=== PATIENT | female | born 1970 | race African-American/Black ===

== ENCOUNTER 2020-05-09 13:54 | Inpatient (IN) | payer OTHER ==
[2020-05-09 14:34] VITALS: BMI 36.4
--- NOTE | 2020-05-09 15:08 | P.HP ---
Certification for Inpatient Patient admitted to: Inpatient With expected LOS: >2 Midnights Practitioner: I am a practitioner with admitting privileges, knowledge of patient current condition, hospital course, and medical plan of care. Services: Services provided to patient in accordance with Admission requirements found in Title 42 Section 412.3 of the Code of Federal Regulations Patient History Date of Service: 05/09/20 Primary Care Provider: Flores Reason for admission: Unstable angina, htn urgency History of Present Illness: Patient came to the office to establish care. She was refereed to us by [facility] dentistry. The patient has a history of elevated blood pressure in the past. However she has never addressed it. She was 200/100's in the Dentists office. She called and made an appointment with me. However she was feeling dizzy during the day and was sent to the office by her work collegues. She was found to have a bp of again 200/100 in the office. This may be her baseline. However she complained of a band like epigastric pain radiating around to the back. She has been having this pain on and off since the past Friday. States it is a 4-10/10 in intensity. Thought she was not having this pain in the office or even now when she has been admitted. We decided to error on the side of caution and admit the patient. She states she takes NSAID's 1-2 times a week. This is usually for headaches. She has no family history of early onset heart disease Allergies No Known Allergies Allergy (Unverified 05/09/20 14:25) Home medications list reviewed: Yes Home Medications: Ibuprofen [Motrin*] 400 mg PO PRN PRN 05/09/20 Naproxen Sodium [Aleve] 220 mg PO PRN PRN 05/09/20 - Past Medical/Surgical History Has patient received pneumonia vaccine in the past: Yes Diabetic: No - Family History Father Notes: Mother -: Hypertension - Social History Smoking Status: Current some day smoker Alcohol use: Yes CD- Drugs: No Caffeine use: Yes Place of Residence: Home Review of Systems 10-point ROS is otherwise unremarkable Cardiovascular: Chest Pain Physical Examination - Vital Signs Blood Pressure: 180/110 - Physical Exam General: Alert, In no apparent distress HEENT: Atraumatic, PERRLA, Mucous membr. moist/pink, EOMI, Sclerae nonicteric Neck: Supple, 2+ carotid pulse no bruit, No LAD, Without JVD or thyroid abnormality Respiratory: Clear to auscultation bilaterally, Normal air movement Cardiovascular: Regular rate/rhythm, Normal S1 S2 Gastrointestinal: Normal bowel sounds, No tenderness Musculoskeletal: No tenderness Integumentary: No rashes Neurological: Normal gait, Normal speech, Normal strength at 5/5 x4 extr, Normal tone, Normal affect Lymphatics: No axilla or inguinal lymphadenopathy Assessment and Plan - Problems (Diagnosis) (1) Unstable angina Current Visit: Yes Status: Acute Plan: She has a normal EKG. Does not have any active pain. Will check serial troponins. Start her on aspirin. Would not do more than standard lovenox. We can try omeprazole to rule out gerd. Will also consult Dr. Nunez (2) HTN (hypertension) Current Visit: Yes Status: Acute Plan: Patient has not been on medications. She does not want to be on lisinopril or losartan. States her daughter was just treated for angiodema. Will start her on verapamil and adjust accordingly. Will give hydralazine for prn use. Avoid NSAIDs. Will give acetaminophen if she needs. May work up secondary htn as an outpatient. She has a neck circumference of 14.5 and a mallampatti score of 4. She may need an out patient sleep study. Qualifiers: Hypertension type: essential hypertension Qualified Code(s): I10 - Essential (primary) hypertension (3) Body mass index (bmi) 36.0-36.9, adult Current Visit: Yes Status: Acute Plan: will need to work her up as an out patient. She may have sleep apnea as aluded to above. Discharge Plan: Home Plan to discharge in: 48 Hours - Advance Directives Does patient have a Living Will: No Does patient have a Durable POA for Healthcare: No - Code Status/Comfort Care Code Status Assessed: No Code Status: Full Code Physician Review: Patient Assessed, Agree with Above Assessment and Plan Critical Care: No Time Spent Managing Pts Care (In Minutes): 75
[2020-05-09] MEDS ORDERED: ASPIRIN 81 MG CHEWABLE TABLET PO STA (15:11)
[2020-05-09] MEDS: HYDRALAZINE HCL 20 MG/ML VIAL IV PRN ×2 (15:22→21:30)
[2020-05-09] MEDS: ENOXAPARIN 40 MG/0.4 ML SQ SCH (15:30)
[2020-05-09 16:21] LABS: Albumin 4.1 g/dL (3.4-5.0); Bilirubin Total 0.3 mg/dL (0.2-1.0); Potassium 3.5 mmol/L (3.5-5.1)
[2020-05-10] MEDS: ACETAMINOPHEN 500 MG TAB PO PRN ×3 (00:04→08:06)
--- NOTE | 2020-05-10 05:21 | CON ---
Date of Consultation: 05/09/2020 Reason For Consultation: Chest pain and hypertensive crisis. History Of Present Illness: Ms. Amaral is a 49-year-old black woman without really any significant past medical history. She was at her dentist's office today and was noted to have severe hypertensio n with a systolic over 190 and was sent to Dr. Tanner for further evaluation and treatment. She was a lso complaining of some chest pressure that has been going on for about a week or 2, that is persiste nt, constant without any nausea, vomiting, and diaphoresis, did complain of some shortness of breath. She grades her chest pain at about 4/10. It was not exertional. Denied any PND, orthopnea, pedal edema, palpitations, or syncope. Denied any fever or chills. She was admitted for hypertensive sri is and chest pain workup. Past Medical History: Unremarkable. Family History: Positive for hypertension. Allergies: NONE. Review of Systems: Negative. Social History: Negative. Medications: At home were none. Physical Examination: General: When I saw her, her blood pressure was 150/100. She has received already IV hydralazine. Her pulse was 72 in sinus rhythm. She was afebrile. HEENT: Negative. Neck: Supple without any bruit, lymphadenopathy, JVD, or thyromegaly. Chest: Clear to auscultation and percussion. Cardiac: Revealed a regular rhythm and rate. No murmurs, gallops, or rubs. Abdomen: Benign. Extremities: Revealed no clubbing, cyanosis, or edema. Diagnostic Data: All within normal limit. Her EKG showed LVH. Impression And Plan: Hypertensive crisis. Patient is presently on aspirin, Lovenox, hydralazine, an d verapamil 180 mg daily. Her blood pressures seem to have improved. Her hydralazine is being used IV. I would definitely continue the verapamil. I would also suggest addition of maybe a Hyzaar 100/ 25 mg daily. I think the combination of Rapamune and Hyzaar will control her blood pressure. Her ch est pain is concerning, although it is probably secondary to hypertension. Echocardiogram and Lexisc an are pending for 05/10/2020. We will see what that shows before making final decisions. JULIETH/EDVIN Voice ID: [id number] Report ID: [id number]
[2020-05-10 06:05] LABS: Absolute Lymphocytes (CBC) 0.8 K/uL (0.7-4.9); Basophils % 0.5 % (0-1.3); Hematocrit 38.9 % (36.0-45.0); Lymphocytes % 9.7 % (15.3-44.8); MPV 8.2 fL (7.6-11.3); RBC Red Blood Cell Count 4.29 M/uL (3.86-4.86)
[2020-05-10 06:24] LABS: Bilirubin Total 0.5 mg/dL (0.2-1.0); Potassium 3.8 mmol/L (3.5-5.1); Thyroid Stimulating Hormone 1.55 uIU/mL (0.360-3.740)
[2020-05-10] MEDS ORDERED: REGADENOSON 0.4 MG/5 ML SYR IV ONE (08:05)
[2020-05-10] MEDS: VERAPAMIL SR 180 MG TAB PO SCH (08:06)
[2020-05-10] MEDS: ASPIRIN EC 81 MG TAB PO SCH (08:06)
[2020-05-10] MEDS: PANTOPRAZOLE 40MG TABLET PO SCH (08:06)
--- NOTE | 2020-05-10 08:27 | P.PN ---
Subjective Date of Service: 05/10/20 Primary Care Provider: Flores Chief Complaint: Unstable angina, htn urgency Subjective: New changes (complaints of headache. She did not sleep well last night) Review of Systems General: Other (headache) Physical Examination - Vital Signs Temperature: 99.0 F Blood Pressure: 164/93 Pulse: 96 Respirations: 16 Pulse Ox (%): 100 - Physical Exam General: Alert, In no apparent distress HEENT: Atraumatic, PERRLA, EOMI Neck: Supple, JVD not distended Respiratory: Clear to auscultation bilaterally, Normal air movement Cardiovascular: Regular rate/rhythm, Normal S1 S2 Gastrointestinal: Normal bowel sounds, No tenderness Musculoskeletal: No tenderness Integumentary: No rashes Neurological: Normal speech, Normal tone, Normal affect Lymphatics: No axilla or inguinal lymphadenopathy - Studies Laboratory Data (last 24 hrs) 05/10/20 06:15: WBC Cancelled, Hgb Cancelled, Hct Cancelled, Plt Count Cancelled 05/10/20 05:24: Sodium 139, Potassium 3.8, BUN 12, Creatinine 0.87, Glucose 105, Total Bilirubin 0.5, AST 20, ALT 24, Alkaline Phosphatase 73, Triglycerides 51, Cholesterol 170, HDL Cholesterol 71 H, Cholesterol/HDL Ratio 2.39 05/10/20 05:24: WBC 7.8, Hgb 12.4, Hct 38.9, Plt Count 202 05/10/20 05:00: Triglycerides Cancelled, Cholesterol Cancelled, HDL Cholesterol Cancelled, Cholesterol/HDL Ratio Cancelled 05/09/20 15:45: Sodium 141, Potassium 3.5, BUN 14, Creatinine 0.91, Glucose 91, Total Bilirubin 0.3, AST 19, ALT 25, Alkaline Phosphatase 74 05/09/20 15:45: Troponin I < 0.02 Assessment & Plan - Problems (Diagnosis) (1) Unstable angina Current Visit: Yes Status: Acute Plan: She has a normal EKG. Does not have any active pain. Will check serial troponi ns. Start her on aspirin. Would not do more than standard lovenox. We can try omeprazole to rule out gerd. Will also consult Dr. Nunez 05/10 Plans for an echo and stress test today. She had a negative troponin (2) HTN (hypertension) Current Visit: Yes Status: Acute Plan: Patient has not been on medications. She does not want to be on lisinopril or losartan. States her daughter was just treated for angiodema. Will start her on verapamil and adjust accordingly. Will give hydralazine for prn use. Avoid NSAIDs. Will give acetaminophen if she needs. May work up secondary htn as an outpatient. She has a neck circumference of 14.5 and a mallampatti score of 4. She may need an out patient sleep study. 05/10 Patient has better bp today. Not at goal. However she is having a bad headache. Will try treating her pain before increasing her bp. She is not likely to have a heart attack or a stroke at this blood pressure. Will give her tylenol now. We can see if some sumatriptan will help. However will give it after the stress test Qualifiers: Hypertension type: essential hypertension Qualified Code(s): I10 - Essential (primary) hypertension (3) Body mass index (bmi) 36.0-36.9, adult Current Visit: Yes Status: Acute Plan: will need to work her up as an out patient. She may have sleep apnea as aluded to above. Discharge Plan: Assisted - Code Status/Comfort Care Code Status Assessed: No Physician Review: Patient Assessed, Agree with Above Assessment and Plan Critical Care: No Time Spent Managing Pts Care (In Minutes): 20
[2020-05-10] MEDS ORDERED: SUMATRIPTAN SUCCI 50 MG TAB PO PRN (08:28)
--- NOTE | 2020-05-10 09:14 | RAD REPORT ---
EXAM DESCRIPTION: NM - Rest Stress Cardiac Imaging - 05/10/2020 9:07 am CLINICAL HISTORY: CP Chest pain. COMPARISON: No comparisons TECHNIQUE: The patient was administered approximately 10mCi of Tc 99m Sestamibi prior to resting SPE CT imaging of the heart. The patient was then administered approximately 30 mCi of Tc 99m Sestamibi f ollowing exercise or pharmacologic stress. Multiplanar SPECT images were reviewed. FINDINGS: No stress-induced ischemia defect is identified. No fixed defect is seen to suggest hibern ating myocardium or scarred myocardium. The end diastolic volume is 99 ml, the end systolic volume is 40 ml, and the ejection fraction is 59 %. IMPRESSION: No stress induced ischemia.
--- NOTE | 2020-05-10 12:24 | EKG ---
Test Date: 2020-05-09 Test Time: 15:04:39 Sonography Technologist: CONSTANCE MEASUREMENT RESULTS: Intervals: Rate: 58 NY: 156 QRSD: 94 QT: 430 QTc: 422 Willis: P: 32 NY: 156 QRS: 12 T: 11 INTERPRETIVE STATEMENTS: Sinus bradycardia Minimal voltage criteria for LVH, may be normal variant Cannot rule out Anterior infarct, age undetermined Abnormal ECG No previous ECG available for comparison Electronically Signed On 05-10-20 12:22:27 CDT by Garett Nunez
--- NOTE | 2020-05-10 12:55 | ECHO ---
HEIGHT: 5 ft 3 in WEIGHT: 205 lb 14.4 oz DATE OF STUDY: 05/10/[address]: Garett Nunez MD 2-DIMENSIONAL: YES M.MODE: YES DOPPLER: YES COLOR FLOW: YES TDS: NO PORTABLE: NO DEFINITY: NO BUBBLE STUDY: NO DIAGNOSIS: CHEST PAIN CARDIAC HISTORY: CATHERIZATION: NO SURGERY: NO PROSTHETIC VALVE: NO PACEMAKER: NO MEASUREMENTS (cm) DIASTOLIC (NORMALS) SYSTOLIC (NORMALS) IVSd 1.4 (0.6-1.2) LA Diam 3.5 (1.9-4.0) LVEF 56% LVIDd 3.7 (3.5-5.7) LVIDs 2.6 (2.0-3.5) %FS 29% LVPWd 1.2 (0.6-1.2) Ao Diam 2.9 (2.0-3.7) 2 DIMENSIONAL ASSESSMENT: RIGHT ATRIUM: NORMAL LEFT ATRIUM: NORMAL RIGHT VENTRICLE: NORMAL LEFT VENTRICLE: LEFT VENTRICULAR HYPERTROPHY TRICUSPID VALVE: NORMAL MITRAL VALVE: NORMAL PULMONIC VALVE: NORMAL AORTIC VALVE: NORMAL PERICARDIAL EFFUSION: NONE AORTIC ROOT: NORMAL LEFT VENTRICULAR WALL MOTION: NORMAL. DOPPLER/COLOR FLOW: NORMAL. COMMENTS: LEFT VENTRICULAR HYPERTROPHY. NORMAL EJECTION FRACTION WITH WALL MOTION. NO EFFUSION. TECHNOLOGIST: NOEMI SOL
--- NOTE | 2020-05-10 13:07 | TREADPHA ---
DX: CHEST PAIN Date of Study: 05/10/2020 Ht: 5' 3 " Wt: 205 lb 14.4 oz Consulting Physician: BREANNA MEDICATIONS: TYLENOL, ASPIRIN, LOVENOX, APRESOLINE, PROTONIX HISTORY: 49 YEAR OLD FEMALE WITH RECENT HISTORY OF HYPERTENSION ADMITTED FOR CHEST PAIN. DENIES PAIN AT TIME OF TESTING PHYSICIAL EXAMINATION: RESTING B.P.: 184/105 RESTING H.R.: 93 RESTING EKG: SINUS RHYTHM, LEFT VENTRICULAR HYPERTROPHY PROTOCOL: LEXISCAN EXERCISE TIME: 3:30 B.P. AT PEAK STRESS: 197/112 IMPRESSION: LEXISCAN STRESS TEST PERFORMED. CARDIOLITE INJECTED PER PROTOCOL. NO SUPRA VENTRICULAR TACHYCARDIA, NO VENTRICULAR TACHYCARDIA, PREMATURE VENTRICLAR COMPLEX NOTED. PATIENT DENIED CHEST PAIN. REPEAT BLOOD PRESSURE 169/99. RESPIRATIONS EVEN NON LABORED. SEE NUCLEAR MEDICINE REPORT.
[2020-05-10] MEDS: ENOXAPARIN 40 MG/0.4 ML SQ SCH (18:51)
[2020-05-10] MEDS ORDERED: ZOLPIDEM TARTRATE 10 MG TABLET PO ONE (20:46)
--- NOTE | 2020-05-10 21:27 | PN ---
Date of Progress Note: 05/10/2020 Ms. Amaral came in yesterday with hypertensive crisis and chest pain. Echocardiogram today showed l eft ventricular hypertrophy with normal ejection fraction. No wall motion abnormalities. Lexiscan w as done and was normal. No evidence of coronary artery disease. Blood pressure is better controlled . She is feeling better, asymptomatic. I would feel comfortable with her going home on verapamil an d maybe Hyzaar, possibly hydralazine 10 mg 3 times a day as well. We will see how she does with her blood pressure regimen and I would be happy to see her as an outpatient. JULIETH/EDVIN Voice ID: [id number] Report ID: [id number]
[2020-05-11 05:36] LABS: Absolute Lymphocytes (CBC) 1.6 K/uL (0.7-4.9); Basophils % 0.4 % (0-1.3); Hematocrit 39.5 % (36.0-45.0); Lymphocytes % 34.5 % (15.3-44.8); MPV 7.8 fL (7.6-11.3); RBC Red Blood Cell Count 4.35 M/uL (3.86-4.86)
[2020-05-11 05:52] LABS: Albumin 3.8 g/dL (3.4-5.0); Bilirubin Total 0.6 mg/dL (0.2-1.0); Potassium 3.6 mmol/L (3.5-5.1); Protein, Total 7.9 g/dL (6.4-8.2)
[2020-05-11 08:16] LABS: Blood Morphology Comment NOT SEEN (NOT SEEN); Platelet Estimate ADEQ
[2020-05-11] MEDS: VERAPAMIL SR 180 MG TAB PO SCH (08:34)
[2020-05-11] MEDS: ASPIRIN EC 81 MG TAB PO SCH (08:34)
[2020-05-11] MEDS: PANTOPRAZOLE 40MG TABLET PO SCH (08:34)
[2020-05-11 08:35] VITALS: BP 156/71
[2020-05-11 08:39] VITALS: O2SAT 100
[2020-05-11 09:13] VITALS: TEMP 98.7
--- NOTE | 2020-05-11 12:29 | P.DS ---
Admission Date: 05/09/20 Discharge Date: 05/11/20 Primary Care Provider: Flores Disposition: ROUTINE DISCHARGE Reason for Admission: Unstable angina, htn urgency Consultations: Enrique - Problems (1) Unstable angina Status: Acute (2) HTN (hypertension) Status: Acute Qualifiers: Hypertension type: essential hypertension Qualified Code(s): I10 - Essential (primary) hypertension (3) Body mass index (bmi) 36.0-36.9, adult Status: Acute Brief History of Present Illness: Patient came to the office to establish care. She was refereed to us by [facility] dentistry. The patient has a history of elevated blood pressure in the past. However she has never addressed it. She was 200/100's in the Dentists office. She called and made an appointment with me. However she was feeling dizzy during the day and was sent to the office by her work collegues. She was found to have a bp of again 200/100 in the office. This may be her baseline. However she complained of a band like epigastric pain radiating around to the back. She has been having this pain on and off since the past Friday. States it is a 4-10/10 in intensity. Thought she was not having this pain in the office or even now when she has been admitted. We decided to error on the side of caution and admit the patient. She states she takes NSAID's 1-2 times a week. This is usually for headaches. She has no family history of early onset heart disease Hospital Course: Patient was admitted from the office for htn urgency She was having an anginal equivalent on and off. She had a negative troponins and ekg. IN the hospital she was seen by Dr. Funes and had a negative echo and stress test She is better controlled on verapamil. Not quite controlled. The patient can follow up with me in a week and we can adjust her medications. Vital Signs/Physical Exam: Temp Pulse Resp BP Pulse Ox 98.7 F 80 16 156/71 H 100 05/11/20 08:00 05/11/20 08:34 05/11/20 08:00 05/11/20 08:34 05/11/20 08:00 General: Alert, In no apparent distress HEENT: Atraumatic, PERRLA, EOMI Neck: Supple, JVD not distended Respiratory: Clear to auscultation bilaterally, Normal air movement Cardiovascular: Regular rate/rhythm, Normal S1 S2 Gastrointestinal: Normal bowel sounds, No tenderness Musculoskeletal: No tenderness Integumentary: No rashes Neurological: Normal speech, Normal tone, Normal affect Lymphatics: No axilla or inguinal lymphadenopathy Laboratory Data at Discharge: WBC 4.7 K/uL (4.3-10.9) D 05/11/20 05:16 Hgb 12.6 g/dL (12.0-15.0) 05/11/20 05:16 Hct 39.5 % (36.0-45.0) 05/11/20 05:16 Plt Count 221 K/uL (152-406) 05/11/20 05:16 Sodium 140 mmol/L (136-145) 05/11/20 05:16 Potassium 3.6 mmol/L (3.5-5.1) 05/11/20 05:16 BUN 13 mg/dL (7-18) 05/11/20 05:16 Creatinine 0.91 mg/dL (0.55-1.3) 05/11/20 05:16 Glucose 99 mg/dL (74-106) 05/11/20 05:16 Total Bilirubin 0.6 mg/dL (0.2-1.0) 05/11/20 05:16 AST 19 U/L (15-37) 05/11/20 05:16 ALT 23 U/L (12-78) 05/11/20 05:16 Alkaline Phosphatase 70 U/L (45-117) 05/11/20 05:16 Troponin I < 0.02 ng/mL (0.0-0.045) 05/09/20 15:45 Triglycerides 51 mg/dL (<150) 05/10/20 05:24 Cholesterol 170 mg/dL (<200) 05/10/20 05:24 HDL Cholesterol 71 mg/dL (40-60) H 05/10/20 05:24 Cholesterol/HDL Ratio 2.39 05/10/20 05:24 Home Medications: Ibuprofen [Motrin*] 400 mg PO PRN PRN 05/09/20 Naproxen Sodium [Aleve] 220 mg PO PRN PRN 05/09/20 Aspirin [Aspirin EC 81 MG] 81 mg PO DAILY 90 Days #90 tablet.dr 05/11/20 Verapamil HCl [Verapamil ER] 180 mg PO DAILY 90 Days #90 tablet.er 05/11/20 Verapamil Sr [Calan Sr*] 180 mg PO DAILY #0 tab 05/11/20 New Medications: Aspirin [Aspirin EC 81 MG] 81 mg PO DAILY 90 Days #90 tablet. Verapamil Sr [Calan Sr*] 180 mg PO DAILY #0 tab Verapamil HCl [Verapamil ER] 180 mg PO DAILY 90 Days #90 tablet.er Diet: Regular Activity: Ad nicholas Followup: Juanjose Tanenr MD [ACTIVE - CAN ADMIT] - (Call to make an appointment. ) Time spent managing pt's care (in minutes): 30
== END 2020-05-11 10:30 | disposition home or self-care (01) | DRG 305 ==
LOC: LAB 13:54 → EDSTATUS 13:56 → 2ND 13:57
PROVIDERS: ADMIT Internal Medicine; ATTEND Internal Medicine
DX: I16.0 Hypertensive urgency (principal); I20.0 Unstable angina; F17.200 Nicotine dependence, unspecified, uncomplicated; Z79.899 Other long term (current) drug therapy; Z20.828 Contact with and (suspected) exposure to other viral communicable diseases
CPT/HCPCS: 36415; 78452; 80053; 80061; 84443; 84484; 85025; 93005; 93017; 93306; A9500; J0360; J1650; J2785; U0002

== ENCOUNTER 2023-02-07 10:32 | Emergency (ER) | payer SELFPAY ==
--- OUTSIDE RECORDS SUMMARY | 2023-02-07 10:34 | XMS REPORT | Continuity of Care Document ---
:1970 Author Organization [facility] t Address [address] [place] [address]. [address] [place] [address] Care Team Providers Name Role Phone Pcp, Patient Does Not Have A Primary Care Physician [phone] Maria Del Rosario Koenig Attending Clinician Unavailable LASHAE MULLEN Attending Clinician Unavailable Lashae Frias Attending Clinician Problems Condition Condition Condition Status Onset Resolution Last Treating Co mments Source Name Details Category Date Date Treatment Clinician Date No known No known Disease Unive rs active active ity of problems problems [facility] Allergies, Adverse Reactions, Alerts Allergy Allergy Status Severity Reaction(s) Onset Inactive Treating Comm ents Source Name Type Date Date Clinician NO KNOWN Drug Active Univers ALLERGIE Class ity of S [facility] Social History Social Habit Start Date Stop Date Quantity Comments Source Exposure to Not sure [facility] SARS-CoV-2 (event) Medica l Branch Sex Assigned At [birth year] [facility]00 [facility] Smoking Status Start Date Stop Date Source Unknown if ever smoked [facility] Medications Ordered Filled Start Stop Current Ordering Indication Dosage Frequency Signature Comments Components Source Medication Medication Date Date Medication? Clinician (SIG) Name Name ondansetron No 4mg 4 mg, Univ ers (ZOFRAN-ODT 01-30 Oral, ity of ) 17:30: 16:23 ONCE, 1 [place] disintegrat 00 :00 dose, On Medi gunjan ing tablet Wed Branch 4 mg 01/30/22 at 1230, Routine ibuprofen 2021- No 600mg 600 mg, Uni vers (IBU) 3-16 16 Oral, ity of tablet 600 17:30: 16:24 ONCE, 1 [place] as mg 00 :00 dose, On Medical Wed Branch 01/30/22 at 1230, ALY verapamiL Yes 240mg Take 240 Uni vers 240 mg ER 3-16 mg by ity of tablet 12:19: mouth [place] 54 daily. Medical Branch codeine-gua Yes 5mL Take 5 mL U nivers ifenesin 3-16 by mouth ity of 10-100 mg/5 00:00: every 6 [place]ienne as mL oral 00 (six) Medical solution hours as Branch needed for Cough. Indication s: influenza ondansetron Yes [id number] 4mg Take 1 Univers 4 mg 3-16 tablet by ity of disintegrat 00:00: mouth [place] ing tablet 00 every 8 Medica l (eight) Branch hours as needed for Nausea and Vomiting (N/V). Immunizations Ordered Immunization Filled Immunization Date Status Commen ts Source Name Name Pfizer COVID-19 Vaccine Pfizer COVID-19 2021-07-16 Completed Vaccine 00:00:00 Vital Signs Vital Name Observation Time Observation Value Comments Source Body temperature 2022-01-30 38.33 Jovana provider aware. [facility] of 17:39:10 patient states [facility] [place] will take [place] Tylenol at home. Systolic blood 2022-01-30 168 mm[Hg] [facility] pressure 16:03:00 [facility] Diastolic blood 2022-01-30 110 mm[Hg] [place] o f pressure 16:03:00 [facility] Heart rate 2022-01-30 88 /min [facility] 16:03:00 [facility] Respiratory rate 2022-01-30 18 /min [facility] 16:03:00 [facility] Body weight 2022-01-30 81.647 kg [facility] 16:03:00 [facility] Oxygen saturation 2022-01-30 99 /min [facility] in Arterial blood 16:03:00 [facility] by Pulse oximetry [place] Procedures Procedure Date / Time Performed Performing Clinician Sourc e RAPID INFLUENZA A/B 2022-01-30 16:21:00 Lashae Mullen [facility] COVID-19 (ID NOW 2022-01-30 16:21:00 Lashae Mullen [facility] RAPID TESTING) [facility] CONSENT/REFUSAL FOR 2022-01-30 15:58:57 Doctor Unassigned, No Un [facility] DIAGNOSIS AND Name Medical Branch TREATMENT Encounters Start End Encounter Admission Attending Care Care Encounter Source Date/Time Date/Time Type Type Clinicians Facility Department ID 2022-08-13 Outpatient RIVAS Koenig [facility] [id number] Common 09:55:01 Avnee [id number] [facility] 2022-08-[address] [facility] [id number] Common 08:57:04 Avnefadi [id number] [facility] 2022-01-30 2022-01-30 Emergency X AHMET MULLEN ERT [id number] Univers 11:05:00 12:40:00 LASHAE osorio [facility] 2022-01-30 2022-01-30 Emergency AHMET Mullen [id number] Univers 11:05:00 12:40:00 Lashae MURGUIA [id number] i [facility] [id number] [facility] [id number] [place] [id number] Branch 2021-07-16 2021-07-16 Outpatient [facility] [id number] [facility] 00:00:00 00:00:00 V Results This patient has no known results.
[2023-02-07] MEDS ORDERED: KETOROLAC 30 MG/ML INJ ONE (11:10)
[2023-02-07 11:27] LABS: Specific Gravity 1.024 (1.005-1.030); Urine Bacteria <20 /HPF (<20); Urine Bilirubin NEGATIVE (Negative); Urine Blood 1+ (Negative); Urine Clarity Clear (Clear); Urine Color Light-Yellow (Yellow); Urine Crystals Unidentified Few /HPF (None Seen); Urine Glucose NEGATIVE (Negative); Urine Mucus Slight /HPF (None Seen); Urine Protein NEGATIVE (Negative); Urine Urobilinogen Normal (Normal); Urine pH 5.5 (5.0-7.0)
--- NOTE | 2023-02-07 12:31 | RAD REPORT ---
EXAM DESCRIPTION: RAD - Lumbar Spine 3 Views - 02/07/2023 12:03 pm CLINICAL HISTORY: low back pain Radiculopathy COMPARISON: No comparisons FINDINGS: Vertebral body heights appear maintained. No compression fracture noted. Small endplate os teophytes with minimal anterolisthesis L4-5. Mild disc thinning with small endplate osteophytes L5-S1 . IMPRESSION: Mild lower lumbar spondylosis.
--- NOTE | 2023-02-07 12:33 | RAD REPORT ---
EXAM DESCRIPTION: RAD - Hip Left 2 View - 02/07/2023 12:07 pm CLINICAL HISTORY: left hip pain COMPARISON: No comparisons FINDINGS: No fracture, dislocation or AVN.
--- NOTE | 2023-02-07 13:20 | EDPHYS ---
Physician Documentation [facility] Name: Sabrina Amaral Age: 52 yrs Sex: Female : 1970 Arrival Date: 02/07/2023 Time: 10:34 Bed 14 Private MD: ED Physician Kaiser Prater HPI: 02/07 10:52 This 52 yrs old Black Female presents to ER via Ambulatory with complaints of Back jmm Pain, Leg Pain. 10:52 The patient presents with pain that is acute. Onset: The symptoms/episode jmm began/occurred gradually, 3 day(s) ago. The pain radiates to the left leg. Associated signs and symptoms: Pertinent negatives: abdominal pain, vomiting. Modifying factors: The patient symptoms are alleviated by nothing, the patient symptoms are aggravated by nothing. Is a 52-year-old female with history of hypertension the presents emerged department with complaints of left-sided hip pain which radiates down the leg. Patient also had some concerns that she may have a UTI due to pain radiating into the groin. Denies any dysuria. Denies fever, vomiting, numbness.. Historical: - Allergies: 10:51 No Known Allergies; ll1 - PMHx: 10:51 Hypertensive disorder; ll1 - PSHx: 10:51 section; ll1 - Immunization history:: Client reports receiving the 2nd dose of the Covid vaccine. - Social history:: Smoking status: Patient reports the use of cigarette tobacco products, denies chronic smoking, but will smoke occasionally. ROS: 10:52 Constitutional: Negative for fever, chills, and weight loss, Cardiovascular: Negative jmm for chest pain, palpitations, and edema, Respiratory: Negative for shortness of breath, cough, wheezing, and pleuritic chest pain. 10:52 MS/extremity: Positive for pain. 10:52 All other systems are negative. Exam: 10:52 Constitutional: This is a well developed, well nourished patient who is awake, alert, jmm and in no acute distress. Head/Face: atraumatic. Eyes: EOMI, no conjunctival erythema appreciated ENT: Moist Mucus Membranes Neck: Trachea midline, Supple Chest/axilla: Normal chest wall appearance and motion. Cardiovascular: Regular rate and rhythm. No edema appreciated Respiratory: Normal respirations, no respiratory distress appreciated Abdomen/GI: Non distended Back: Normal ROM Skin: General appearance color normal 10:52 Musculoskeletal/extremity: Pain on palpation of the left proximal femur, compartments are soft, full range of motion appreciated, full dorsalis pedis pulse, neurovascular. 10:52 Neuro: Orientation: is normal, Mentation: is normal, Memory: is normal. 10:52 Psych: Behavior/mood is pleasant, cooperative. Vital Signs: 10:52 BP 178 / 99; Pulse 51; Resp 17; Temp 99.2; Pulse Ox 96% on R/A; Weight 79.83 kg; Height ll1 5 ft. 3 in. ; Pain 8/10; 12:55 BP 163 / 97; Pulse 55; Resp 17; ll1 13:20 Pain 6/10; jl7 13:20 BP 173 / 95; Pulse 56; Resp 15; Pulse Ox 97% ; Pain 6/10; jl7 10:52 Body Mass Index 31.18 (79.83 kg, 160.02 cm) ll1 10:52 Pain Scale: Adult ll1 13:20 Pain Scale: Adult jl7 13:20 Pain Scale: Adult jl7 MDM: 10:52 Patient medically screened. [facility] 14:28 Differential diagnosis: Sciatica, hip strain, fracture. Data reviewed: vital signs, [facility] nurses notes, lab test result(s), radiologic studies, plain films. I considered the following discharge prescriptions or medication management in the emergency department Medications were administered in the Emergency Department. See MAR. Independent interpretation of the following test(s) in the Emergency Department X-Ray: My interpretation is No fracture appreciated. Counseling: I had a detailed discussion with the patient and/or guardian regarding: the historical points, exam findings, and any diagnostic results supporting the discharge/admit diagnosis, lab results, radiology results, the need for outpatient follow up, to return to the emergency department if symptoms worsen or persist or if there are any questions or concerns that arise at home. 02/07 10:57 Order name: Urinalysis w/ reflexes; Complete Time: 11:30 [facility] 02/07 10:57 Order name: Lumbar Spine (3 Views) XRAY; Complete Time: 12:34 [facility] 02/07 10:57 Order name: Hip Left 2 View XRAY; Complete Time: 12:34 [facility] Administered Medications: 11:09 Drug: Ketorolac IM 30 mg Route: IM; Site: left gluteus; ll1 12:57 Follow up: Response: No adverse reaction; Pain is decreased; RASS: Alert and Calm (0) ll1 13:20 Follow up: Pain 6/10 Adult jl7 Disposition: 14:47 Co-signature as Attending Physician, Kaiser Prater MD I reviewed the patient's care rt provided by the Advanced Practice Provider and agree with the diagnosis and treatment plan. Disposition Summary: 02/07/23 13:20 Discharge Ordered Location: Home [facility] Condition: Stable [facility] Diagnosis - Sciatica [facility] - UTI/ Urinary tract infection, site not specified [facility] Followup: [facility] - With: Private Physician - When: 2 - 3 days - Reason: Recheck today's complaints, Continuance of care, Re-evaluation by your physician Followup: [facility] - With: Jaime Lee MD - When: 2 - 3 days - Reason: Recheck today's complaints, Continuance of care, Re-evaluation by your physician Discharge Instructions: - Discharge Summary Sheet [facility] - Sciatica [facility] - Urinary Tract Infection, Adult [facility] Forms: - Medication Reconciliation Form [facility] - Thank You Letter [facility] - Antibiotic Education [facility] - Prescription Opioid Use [facility] Prescriptions: - Cephalexin 500 mg Oral Capsule - take 1 capsule by ORAL route every 8 hours for 10 days; 30 capsule; Refills: 0, [facility] Product Selection Permitted - Medrol (Sebastian) 4 mg Oral Tablets, Dose Pack - take 1 tablet by ORAL route as directed - follow package instructions; 1 [facility] packet; Refills: 0, Product Selection Permitted - orphenadrine citrate 100 mg Oral Tablet Sustained Release - take 1 tablet by ORAL route 2 times per day As needed; 20 tablet; Refills: 0, [facility] Product Selection Permitted Signatures: Dispatcher [employer] Theodore Kramer PA PA jmm Lewis, Lynsay, RN RN ll1 Kaiser Prater MD MD rt Bernardino Diaz RN jl7
--- NOTE | 2023-02-07 13:20 | ER ---
Nurse's Notes [facility] Name: Sabrina Amaral Age: 52 yrs Sex: Female : 1970 Arrival Date: 02/07/2023 Time: 10:34 Bed 14 Private MD: Diagnosis: Sciatica;UTI/ Urinary tract infection, site not specified Presentation: 02/07 10:52 Chief complaint: Patient states: Lower back pain started 1 week ago. Pain radiates into ll1 L upper leg now. Pain is worse at night. Coronavirus screen: Vaccine status: Patient reports receiving the 2nd dose of the covid vaccine. Client denies travel out of the [place] in the last 14 days. At this time, the client does not indicate any symptoms associated with coronavirus-19. Ebola Screen: Patient denies travel to an Ebola-affected area in the 21 days before illness onset. Initial Sepsis Screen: Does the patient meet any 2 criteria? No. Patient's initial sepsis screen is negative. Does the patient have a suspected source of infection? No. Patient's initial sepsis screen is negative. Risk Assessment: Do you want to hurt yourself or someone else? Patient reports no desire to harm self or others. Onset of symptoms was January 31, 2023. 10:52 Method Of Arrival: Ambulatory ll1 10:52 Acuity: NYLA 3 ll1 Triage Assessment: 10:55 General: Appears uncomfortable, Behavior is calm, cooperative, appropriate for age. ll1 Pain: Complains of pain in L lower back Quality of pain is described as aching. Musculoskeletal: Circulation, motion, and sensation intact. Capillary refill < 3 seconds, Reports pain in L lower back/left leg. Historical: - Allergies: 10:51 No Known Allergies; ll1 - PMHx: 10:51 Hypertensive disorder; ll1 - PSHx: 10:51 section; ll1 - Immunization history:: Client reports receiving the 2nd dose of the Covid vaccine. - Social history:: Smoking status: Patient reports the use of cigarette tobacco products, denies chronic smoking, but will smoke occasionally. Screenin:57 [facility] ED Fall Risk Assessment (Adult) Score/Fall Risk Level 0 - 2 = Low Risk ll1 Oriented to surroundings, Maintained a safe environment, Educated pt \T\ family on fall prevention, incl call for assistance when getting out of bed, Hourly rounding (assess needs \T\ fall precautionary measures) done. Abuse screen: Denies threats or abuse. Nutritional screening: No deficits noted. Tuberculosis screening: No symptoms or risk factors identified. Assessment: 11:10 Reassessment: No changes from previously documented assessment. Patient and/or family ll1 updated on plan of care and expected duration. Pain level reassessed. Patient is alert, oriented x 3, equal unlabored respirations, skin warm/dry/pink. 11:49 Reassessment: No changes from previously documented assessment. To Xray via stretcher. ll1 12:55 Reassessment: No changes from previously documented assessment. Patient and/or family ll1 updated on plan of care and expected duration. Pain level reassessed. Patient is alert, oriented x 3, equal unlabored respirations, skin warm/dry/pink. 13:11 Reassessment: No changes from previously documented assessment. JAYDEN Devlin at . ll1 13:20 Reassessment: Patient appears in no apparent distress at this time. Pain rated 6/10 on jl7 discharge. Pt reports non-compliance with HTN medication and is aware of risk Patient states feeling better. Patient states symptoms have improved. Vital Signs: 10:52 BP 178 / 99; Pulse 51; Resp 17; Temp 99.2; Pulse Ox 96% on R/A; Weight 79.83 kg; Height ll1 5 ft. 3 in. ; Pain 8/10; 12:55 BP 163 / 97; Pulse 55; Resp 17; ll1 13:20 Pain 6/10; jl7 13:20 BP 173 / 95; Pulse 56; Resp 15; Pulse Ox 97% ; Pain 6/10; jl7 10:52 Body Mass Index 31.18 (79.83 kg, 160.02 cm) ll1 10:52 Pain Scale: Adult ll1 13:20 Pain Scale: Adult jl7 13:20 Pain Scale: Adult jl7 ED Course: 10:34 Patient arrived in ED. mr 10:47 Theodore Azul PA is PHCP. [facility] 10:47 Kaiser Prater MD is Attending Physician. [facility] 10:51 Ghazala Seay, JAKE is Primary Nurse. ll1 10:51 Arm band placed on Patient placed in an exam room, on a stretcher. ll1 10:55 Triage completed. ll1 12:02 Lumbar Spine (3 Views) XRAY In Process Unspecified. EDMS 12:02 Hip Left 2 View XRAY In Process Unspecified. EDMS 12:57 Patient has correct armband on for positive identification. Bed in low position. Call ll1 light in reach. Cardiac monitoring not applicable on this patient. 12:57 No provider procedures requiring assistance completed. Patient did not have IV access ll1 during this emergency room visit. 13:21 Jaime Lee MD is Referral Physician. dolly 13:22 Referral Physician role handed off by Jaime Lee MD jmm Administered Medications: 11:09 Drug: Ketorolac IM 30 mg Route: IM; Site: left gluteus; ll1 12:57 Follow up: Response: No adverse reaction; Pain is decreased; RASS: Alert and Calm (0) ll1 13:20 Follow up: Pain 6/10 Adult jl7 Medication: 12:57 VIS not applicable for this client. ll1 Outcome: 13:20 Discharge ordered by . annamarie 13:20 Discharged to home ambulatory. jl7 13:20 Condition: stable 13:20 Discharge instructions given to patient, Instructed on discharge instructions, follow up and referral plans. medication usage, Demonstrated understanding of instructions, follow-up care, medications, Prescriptions given X 3. 13:31 Patient left the ED. jl7 Signatures: Dispatcher [employer] EDMS Theodore Azul PA PA jmm Rivera, Mary mr DiazBernardino RN RN jl7 Ghazala Seay RN RN ll1
[2023-02-07 13:36] VITALS: TEMP 99.2; O2SAT 96
[2023-02-07 13:37] VITALS: BP 163/97
== END 2023-02-07 13:31 | disposition home or self-care (01) ==
LOC: ER 10:32
DX: M54.32 Sciatica, left side (principal); N39.0 Urinary tract infection, site not specified; I10 Essential (primary) hypertension; F17.210 Nicotine dependence, cigarettes, uncomplicated
CPT/HCPCS: 72100; 81001; 96372; 99283